=== PATIENT | female | born 1995 | race Two or more races ===

== ENCOUNTER 2021-06-26 17:38 | Emergency (ER) | payer OTHER ==
[~2021-06-26] VITALS: Ht 162.6 cm; Wt 56.7 kg
[2021-06-26] MEDS ORDERED: FLONASE ALLERG9.9 ML NASAL (18:45)
[2021-06-26] MEDS ORDERED: CLARITIN10 M1 PO (18:45)
[2021-06-26] MEDS ORDERED: SINUS RINSE ST1 EACH NASAL (18:45)
== END 2021-06-26 18:53 | disposition home or self-care (01) ==
LOC: ER 17:38
DX: J30.9 Allergic rhinitis, unspecified (principal)

== ENCOUNTER 2022-10-25 09:11 | Emergency (ER) | payer OTHER ==
[~2022-10-25] VITALS: Ht 170.2 cm; Wt 63.5 kg
[~2022-10-25 09:11] MED LIST: CLARITIN10 M1 PO; FLONASE ALLERG9.9 ML NASAL; SINUS RINSE ST1 EACH NASAL
[2022-10-25] MEDS ORDERED: BENADRYL ITCH C59 ML TOP (11:00)
== END 2022-10-25 11:17 | disposition home or self-care (01) ==
LOC: ER 09:11
DX: S80.861A Insect bite (nonvenomous), right lower leg, initial encounter (principal); W57.XXXA Bitten or stung by nonvenomous insect and other nonvenomous arthropods, initial encounter; Y93.89 Activity, other specified; Y92.89 Other specified places as the place of occurrence of the external cause

== ENCOUNTER 2022-11-24 18:27 | Emergency (ER) | payer OTHER ==
[~2022-11-24] VITALS: Ht 162.6 cm; Wt 63.5 kg
[~2022-11-24 18:27] MED LIST changes: +BENADRYL ITCH C59 ML TOP
== END 2022-11-24 22:30 | disposition home or self-care (01) ==
LOC: ER 18:27
PROVIDERS: General Practice
DX: B34.9 Viral infection, unspecified (principal); Z20.822 Contact with and (suspected) exposure to COVID-19

== ENCOUNTER 2023-01-28 14:20 | Emergency (ER) | payer OTHER ==
[~2023-01-28] VITALS: Ht 162.6 cm; Wt 88.5 kg
== END 2023-01-28 20:41 | disposition home or self-care (01) ==
LOC: ER 14:21
DX: J06.9 Acute upper respiratory infection, unspecified (principal); Z20.822 Contact with and (suspected) exposure to COVID-19

== ENCOUNTER 2024-02-07 16:34 | Emergency (ER) | payer OTHER ==
[~2024-02-07] VITALS: Ht 162.6 cm; Wt 63.5 kg
[2024-02-07] MEDS ORDERED: ORPHENADRINE CITRATE 30 MG/ML AMPUL IM STA (19:36)
== END 2024-02-07 19:43 | disposition home or self-care (01) ==
LOC: ER 16:36
DX: T14.90XA Injury, unspecified, initial encounter (principal); V49.9XXA Car occupant (driver) (passenger) injured in unspecified traffic accident, initial encounter; Y93.9 Activity, unspecified; Y92.413 State road as the place of occurrence of the external cause; Y99.9 Unspecified external cause status

== ENCOUNTER 2024-07-21 10:17 | Emergency (ER) | payer OTHER ==
[~2024-07-21] VITALS: Ht 162.6 cm; Wt 61.2 kg
[2024-07-21] MEDS ORDERED: LEVALBUTEROL HCL 1.25 MG/3 ML SOLUTION IH STA (11:12)
[2024-07-21] MEDS ORDERED: LEVALBUTEROL HCL 1.25 MG/3 ML SOLUTION IH ONE (11:29)
[2024-07-21 12:27] LABS: HEMATOCRIT 37.1 % (36.0-45.00); HEMOGLOBIN 12.5 g/dL (12.0-15.00); MEAN CORPUSCULAR HEMOGLOBIN 31.4 pg (27.00-32.0); MEAN CORPUSCULAR HGB CONC 33.8 g/dl (32.0-36.0); PLATELET COUNT 176 K/uL (150-450); RED BLOOD COUNT 3.99 M/uL (4.00-6.00)
[2024-07-21 12:37] LABS: INFLUENZA A AG NEGATIVE (NEGATIVE)
== END 2024-07-21 13:22 | disposition home or self-care (01) ==
LOC: ER 10:17
PROVIDERS: General Practice
DX: J40 Bronchitis, not specified as acute or chronic (principal); R50.9 Fever, unspecified

== ENCOUNTER 2024-08-10 23:48 | Emergency (ER) | payer OTHER ==
[~2024-08-10] VITALS: Ht 160 cm; Wt 56.7 kg
[2024-08-11] MEDS ORDERED: MONISTAT 315 GM VAG (00:49)
[2024-08-11] MEDS ORDERED: FLUCONAZOLE150 MG PO (00:49)
[2024-08-11] MEDS ORDERED: FAMCICLOVIR500 MG PO (00:49)
== END 2024-08-11 00:53 | disposition home or self-care (01) ==
LOC: ER 23:51
DX: B37.9 Candidiasis, unspecified (principal)

== ENCOUNTER 2025-01-08 10:46 | Emergency (ER) | payer OTHER ==
[~2025-01-08] VITALS: Ht 162.6 cm; Wt 63.5 kg
[~2025-01-08 10:46] MED LIST changes: +FAMCICLOVIR500 MG PO; +FLUCONAZOLE150 MG PO; +MONISTAT 315 GM VAG
[2025-01-08] MEDS ORDERED: ORPHENADRINE CITRATE 30 MG/ML AMPUL IV ONE (11:45)
[2025-01-08] MEDS ORDERED: FAMOTIDINE/PF 20 MG/2 ML VIAL IV ONE (11:45)
[2025-01-08] MEDS ORDERED: 0.9 % SODIUM CHLORIDE 1,000 ML IV SCH (11:45)
[2025-01-08] MEDS ORDERED: DEXAMETHASONE SODIUM PHOSP/PF 10 MG/ML VIAL IV ONE (11:45)
[2025-01-08] MEDS ORDERED: KETOROLAC TROMETHAMINE 30 MG VIAL IV ONE (11:45)
[2025-01-08] MEDS ORDERED: CEFTRIAXONE SODIUM 1,000 MG VIAL IV ONE (11:45)
[2025-01-08] MEDS ORDERED: KETOROLAC TROMETHAMINE 30 MG VIAL ONE (12:28)
[2025-01-08] MEDS ORDERED: DEXAMETHASONE SODIUM PHOSPHATE 4 MG/ML VIAL ONE (12:28)
[2025-01-08] MEDS ORDERED: ORPHENADRINE CITRATE 30 MG/ML AMPUL ONE (12:28)
[2025-01-08] MEDS ORDERED: FAMOTIDINE/PF 20 MG/2 ML VIAL ONE (12:29)
[2025-01-08] MEDS ORDERED: CEFTRIAXONE SODIUM 1,000 MG VIAL ONE (12:29)
[2025-01-08 13:25] LABS: BASO % 0.3 % (0.1-1.2); EOS # 0.08 (0.04-0.54); EOS % 0.8 % (0.7-7.0); LYMPH # 0.85 (1.18-3.74); LYMPH % 9.0 % (19.3-53.1); MEAN PLATELET VOLUME 10.30 fl (9.4-12.4); MONO # 0.89 (0.24-0.82); MONO % 9.4 % (4.7-12.5); NEUT # 7.60 (1.56-6.13); NEUT % 80.3 % (34.0-71.1); RED CELL DISTRIBUTION WIDTH 13.4 % (11.6-14.4)
[2025-01-08 14:50] LABS: COVID-19 AG NEGATIVE (NEGATIVE)
[2025-01-08] MEDS ORDERED: CHLORASEPTIC177 M2 MM (15:44)
[2025-01-08] MEDS ORDERED: AMOXICILLIN500 MG PO (15:44)
== END 2025-01-08 16:24 | disposition home or self-care (01) ==
LOC: ER 10:46
PROVIDERS: Student in an Organized Health Care Education/Training Program
DX: J03.80 Acute tonsillitis due to other specified organisms (principal); B96.89 Other specified bacterial agents as the cause of diseases classified elsewhere; Z20.822 Contact with and (suspected) exposure to COVID-19; Z72.0 Tobacco use